=== PATIENT | male | born 1980 | race Caucasian/White ===

== ENCOUNTER 2022-07-09 20:01 | Emergency (ER) | payer MEDICAID ==
[~2022-07-09] VITALS: Ht 182.9 cm; Wt 62.7 kg
[2022-07-09 20:05] VITALS: BP 126/72
== END 2022-07-09 21:24 | disposition home or self-care (01) ==
LOC: ER 20:01
DX: S61.210A Laceration without foreign body of right index finger without damage to nail, initial encounter (principal); F17.200 Nicotine dependence, unspecified, uncomplicated; F12.10 Cannabis abuse, uncomplicated; Z56.0 Unemployment, unspecified; Z79.899 Other long term (current) drug therapy; X58.XXXA Exposure to other specified factors, initial encounter; Y93.89 Activity, other specified; Y92.89 Other specified places as the place of occurrence of the external cause; Y99.8 Other external cause status
CPT/HCPCS: 12001; 73140; 99283